=== PATIENT | female | born 1985 | race African-American/Black ===

== ENCOUNTER 2021-12-17 23:32 | Emergency (ER) | payer BC ==
[~2021-12-17] VITALS: Ht 182.9 cm; Wt 108.9 kg
[2021-12-18] MEDS ORDERED: INDOMETHACIN50 MG PO (03:10)
[2021-12-18] MEDS ORDERED: MEDROL8 MG PO (03:10)
== END 2021-12-18 03:16 ==
LOC: ER 23:32
DX: M10.9 Gout, unspecified (principal); M25.421 Effusion, right elbow